=== PATIENT | female | born 1945 | race Caucasian/White ===

== ENCOUNTER 2024-06-19 11:30 | Emergency (ER) | payer MEDICARE, OTHER ==
[~2024-06-19] VITALS: Ht 170.2 cm; Wt 70.0 kg
[2024-06-19 11:58] LABS: BASOPHILS 0.3 % (0-2); EOSINOPHILS 1.5 % (0-6); HEMATOCRIT 41.9 % (35.0-50.0); HEMOGLOBIN 14.1 g/dL (12.0-18.0); LYMPHOCYTES 33.4 % (24-44); MCH 30.8 (27-36); MCHC 33.7 g/dl (30-36); MCV 91.4 fl (81-99); NEUTROPHILS 56.8 % (39-80); PLATELET COUNT 240 K/uL (140-440); RBC 4.59 M/ul (4.3-5.7); RDW 13.5 (10.5-15.0)
[2024-06-19] MEDS ORDERED: LEVOTHYROXINE25 MCG PO (12:04)
[2024-06-19] MEDS ORDERED: HYDROCHLOROTH12.5 MG PO (12:04)
[2024-06-19] MEDS ORDERED: OMEPRAZOLE20 MG PO (12:04)
[2024-06-19] MEDS ORDERED: LISINOPRIL20 MG PO (12:04)
[2024-06-19] MEDS ORDERED: GABAPENTIN300 MG PO (12:04)
[2024-06-19] MEDS ORDERED: PROMETRIUM100 MG PO (12:04)
[2024-06-19] MEDS ORDERED: PREMARIN0.45 MG PO (12:05)
[2024-06-19] MEDS ORDERED: ATORVASTATIN CA80 MG PO (12:05)
[2024-06-19 12:06] LABS: PARTIAL THROMBOPLASTIN TIME 23.3 Sec (22.9-41.3)
[2024-06-19 12:07] LABS: INR 0.96 (0.80-1.30); PROTIME 12.7 Sec (11.2-14.2)
[2024-06-19 12:29] LABS: ALBUMIN 3.4 g/dL (3.4-5.0); ALBUMIN/GLOBULIN RATIO 0.87 (1.1-2.4); ANION GAP 10.4 (7-21); BILIRUBIN, TOTAL 0.4 mg/dL (0.2-1.0); BUN/CREATININE RATIO 22.32 (6.0-28.6); CALCIUM 8.7 mg/dL (8.5-10.1); CREATININE, SERUM 1.12 mg/dL (0.55-1.02); POTASSIUM 3.4 mmol/L (3.5-5.1); PROTEIN, TOTAL 7.3 g/dL (6.4-8.2)
[2024-06-19 17:01] VITALS: BP 160/85
--- NOTE | 2024-06-20 11:48 | EKG ---
[facility] [address] [place], [place] [address] Signed Normal sinus rhythm Nonspecific T wave abnormality Abnormal ECG No previous ECGs available Confirmed by Malgorzata Sharpe MD ([id number]) on 06/20/2024 11:48:12 AM Electronically Signed By: MALGORZATA SHARPE MD 06/20/24 1148 PATIENT NAME: MITA HERNANDEZ Electrocardiogram DATE OF : 43 PHYSICIAN: MALGORZATA SHARPE MD REPORT #: [id number] REPORT IS CONFIDENTIAL AND NOT TO BE RELEASED WITHOUT AUTHORIZATION
== END 2024-06-19 17:02 | disposition home or self-care (01) ==
LOC: ED 11:30
PROVIDERS: Emergency Medicine
DX: R42 Dizziness and giddiness (principal); I67.1 Cerebral aneurysm, nonruptured; H53.2 Diplopia; Z79.890 Hormone replacement therapy; Z79.899 Other long term (current) drug therapy
CPT/HCPCS: 36415; 70450; 70496; 70498; 70551; 71045; 80053; 85025; 85610; 85651; 85730; 86140; 86141; 93005; 93010; 99285-25; Q9967